=== PATIENT | male | born 1995 ===

== ENCOUNTER → 2021-03-19 10:31 | Outpatient (CLI) | payer OTHER | END | disposition home or self-care (01) | LOC: MRI 10:31 | PROVIDERS: ATTEND Radiology Diagnostic Radiology | DX: M25.462 Effusion, left knee (principal); M71.22 Synovial cyst of popliteal space [Baker], left knee; M25.562 Pain in left knee | CPT/HCPCS: 73721 ==

== ENCOUNTER 2023-10-21 11:43 | Outpatient (CLI) | payer OTHER | END 2023-10-21 12:30 | disposition home or self-care (01) | LOC: MRI 11:43 | DX: M25.562 Pain in left knee (principal); S83.512A Sprain of anterior cruciate ligament of left knee, initial encounter | CPT/HCPCS: 73721 ==